=== PATIENT | female | born 1945 | race Caucasian/White ===

== ENCOUNTER → 2019-02-09 09:51 | Outpatient (CLI) | payer MEDICARE, OTHER, SELFPAY | PROVIDERS: PCP Family Medicine; Visit Provider Family Medicine | DX: T81.31XA Disruption of external operation (surgical) wound, not elsewhere classified, initial encounter (principal); S91.302A Unspecified open wound, left foot, initial encounter | CPT/HCPCS: 11043; 99203; 99213 ==

== ENCOUNTER → 2019-02-13 14:28 | Outpatient (CLI) | payer MEDICARE, OTHER, SELFPAY | PROVIDERS: PCP Family Medicine; Visit Provider Family Medicine | DX: S81.802A Unspecified open wound, left lower leg, initial encounter (principal) | CPT/HCPCS: 97605 ==

== ENCOUNTER → 2019-02-15 15:10 | Outpatient (CLI) | payer MEDICARE, OTHER, SELFPAY | PROVIDERS: PCP Family Medicine; Visit Provider Family Medicine | DX: T81.31XA Disruption of external operation (surgical) wound, not elsewhere classified, initial encounter (principal); S91.302A Unspecified open wound, left foot, initial encounter; R60.0 Localized edema | CPT/HCPCS: 11042; 97605 ==

== ENCOUNTER → 2019-02-17 09:47 | Outpatient (CLI) | payer MEDICARE, OTHER, SELFPAY | PROVIDERS: PCP Family Medicine; Visit Provider Family Medicine | DX: S91.302D Unspecified open wound, left foot, subsequent encounter (principal) | CPT/HCPCS: 97605; 99213 ==

== ENCOUNTER → 2019-02-20 10:38 | Outpatient (CLI) | payer MEDICARE, OTHER, SELFPAY | PROVIDERS: PCP Family Medicine; Visit Provider Family Medicine | DX: T81.31XA Disruption of external operation (surgical) wound, not elsewhere classified, initial encounter (principal); S91.302A Unspecified open wound, left foot, initial encounter | CPT/HCPCS: 11042; 97605 ==

== ENCOUNTER → 2019-02-23 12:38 | Outpatient (CLI) | payer MEDICARE, OTHER, SELFPAY | PROVIDERS: PCP Family Medicine; Visit Provider Family Medicine | DX: S91.302A Unspecified open wound, left foot, initial encounter (principal) | CPT/HCPCS: 97605 ==

== ENCOUNTER → 2019-02-27 13:30 | Outpatient (CLI) | payer MEDICARE, OTHER, SELFPAY | PROVIDERS: PCP Family Medicine; Visit Provider Family Medicine | DX: T81.31XA Disruption of external operation (surgical) wound, not elsewhere classified, initial encounter (principal); S91.302A Unspecified open wound, left foot, initial encounter; R60.0 Localized edema | CPT/HCPCS: 97597 ==

== ENCOUNTER → 2019-03-02 09:27 | Outpatient (CLI) | payer MEDICARE, OTHER, SELFPAY | PROVIDERS: PCP Family Medicine; Visit Provider Family Medicine | DX: S91.302A Unspecified open wound, left foot, initial encounter (principal) | CPT/HCPCS: 97605 ==

== ENCOUNTER → 2019-03-06 13:30 | Outpatient (CLI) | payer MEDICARE, OTHER, SELFPAY | PROVIDERS: PCP Family Medicine; Visit Provider Family Medicine | DX: T81.31XA Disruption of external operation (surgical) wound, not elsewhere classified, initial encounter (principal); S91.302A Unspecified open wound, left foot, initial encounter | CPT/HCPCS: 97597 ==

== ENCOUNTER → 2019-03-13 09:17 | Outpatient (CLI) | payer MEDICARE, OTHER, SELFPAY | PROVIDERS: PCP Family Medicine; Visit Provider Family Medicine | DX: T81.31XA Disruption of external operation (surgical) wound, not elsewhere classified, initial encounter (principal); S91.302A Unspecified open wound, left foot, initial encounter | CPT/HCPCS: 15275; Q4110 ==

== ENCOUNTER → 2019-03-20 12:59 | Outpatient (CLI) | payer MEDICARE, OTHER, SELFPAY | PROVIDERS: PCP Family Medicine; Visit Provider Family Medicine | DX: T81.31XA Disruption of external operation (surgical) wound, not elsewhere classified, initial encounter (principal); S91.302A Unspecified open wound, left foot, initial encounter | CPT/HCPCS: 11042; 99213 ==

== ENCOUNTER → 2019-03-27 10:02 | Outpatient (CLI) | payer MEDICARE, OTHER, SELFPAY | PROVIDERS: PCP Family Medicine; Visit Provider Family Medicine | DX: T81.31XA Disruption of external operation (surgical) wound, not elsewhere classified, initial encounter (principal); S91.302A Unspecified open wound, left foot, initial encounter; R60.0 Localized edema | CPT/HCPCS: 97597 ==

== ENCOUNTER → 2019-04-03 14:27 | Outpatient (CLI) | payer MEDICARE, OTHER, SELFPAY | PROVIDERS: PCP Family Medicine; Referring Provider Orthopaedic Surgery; Visit Provider Family Medicine | DX: T81.31XA Disruption of external operation (surgical) wound, not elsewhere classified, initial encounter (principal); S91.302A Unspecified open wound, left foot, initial encounter; R60.0 Localized edema | CPT/HCPCS: 97597 ==

== ENCOUNTER → 2019-04-10 10:02 | Outpatient (CLI) | payer MEDICARE, OTHER, SELFPAY | PROVIDERS: PCP Family Medicine; Referring Provider Orthopaedic Surgery; Visit Provider Family Medicine | DX: T81.31XA Disruption of external operation (surgical) wound, not elsewhere classified, initial encounter (principal); S91.302A Unspecified open wound, left foot, initial encounter | CPT/HCPCS: 97597 ==

== ENCOUNTER → 2019-04-17 09:34 | Outpatient (CLI) | payer MEDICARE, OTHER, SELFPAY | PROVIDERS: PCP Family Medicine; Referring Provider Family Medicine; Visit Provider Family Medicine | DX: T81.31XA Disruption of external operation (surgical) wound, not elsewhere classified, initial encounter (principal); S91.302A Unspecified open wound, left foot, initial encounter | CPT/HCPCS: 97597 ==

== ENCOUNTER → 2019-04-24 09:11 | Outpatient (CLI) | payer MEDICARE, OTHER, SELFPAY | PROVIDERS: PCP Family Medicine; Referring Provider Family Medicine; Visit Provider Family Medicine | DX: T81.31XA Disruption of external operation (surgical) wound, not elsewhere classified, initial encounter (principal); S91.302A Unspecified open wound, left foot, initial encounter | CPT/HCPCS: 97597 ==

== ENCOUNTER → 2019-05-01 09:53 | Outpatient (CLI) | payer MEDICARE, OTHER, SELFPAY | PROVIDERS: PCP Family Medicine; Referring Provider Orthopaedic Surgery; Visit Provider Family Medicine | DX: T81.31XA Disruption of external operation (surgical) wound, not elsewhere classified, initial encounter (principal); S91.302A Unspecified open wound, left foot, initial encounter; R60.0 Localized edema | CPT/HCPCS: 99212 ==

== ENCOUNTER → 2020-06-04 15:43 | Outpatient (CLI) | payer MEDICARE, OTHER, SELFPAY ==
[2020-06-04 16:38] LABS: Magnesium 2.1 mg/dL (1.6-2.3)
== END ==
PROVIDERS: PCP Internal Medicine; Referring Provider Internal Medicine Cardiovascular Disease; Visit Provider Internal Medicine Cardiovascular Disease
DX: I47.1 Supraventricular tachycardia (principal); R00.2 Palpitations; E78.5 Hyperlipidemia, unspecified
CPT/HCPCS: 36415; 83735